=== PATIENT | male | born 2000 | race Caucasian/White ===

== ENCOUNTER 2025-01-07 20:12 | Emergency (ER) | payer OTHER ==
[~2025-01-07] VITALS: Ht 185.4 cm; Wt 104.3 kg
[2025-01-07] MEDS ORDERED: LEXAPRO10 MG PO (20:22)
[2025-01-07] MEDS ORDERED: SODIUM CHLORIDE 0.9% 1,000 ML IV ONE (20:45)
== END 2025-01-07 23:55 | disposition home or self-care (01) ==
LOC: ED 20:12
DX: S46.912A Strain of unspecified muscle, fascia and tendon at shoulder and upper arm level, left arm, initial encounter (principal); S06.0XAA Concussion with loss of consciousness status unknown, initial encounter; Z79.899 Other long term (current) drug therapy; Y04.2XXA Assault by strike against or bumped into by another person, initial encounter; Y93.89 Activity, other specified; Y92.89 Other specified places as the place of occurrence of the external cause; Y99.8 Other external cause status